=== PATIENT | female | born 1995 | race Caucasian/White ===

== ENCOUNTER 2024-12-10 09:21 | Emergency (ER) | payer MEDICAID ==
[~2024-12-10] VITALS: Ht 163.8 cm; Wt 88.5 kg
[2024-12-10 09:37] VITALS: TEMP 36.7; O2SAT 100
[2024-12-10] MEDS ORDERED: IBUP-2029 MT (11:07)
[2024-12-10] MEDS: KETOROLAC 15MG/ML VIAL IM ONE (11:59)
[2024-12-10 12:20] VITALS: BP 134/67; PULSE 66; RESP 16; O2SAT 100
== END 2024-12-10 12:26 | disposition home or self-care (01) ==
LOC: ER 09:21
DX: M79.645 Pain in left finger(s) (principal); I10 Essential (primary) hypertension; E11.9 Type 2 diabetes mellitus without complications; W23.0XXA Caught, crushed, jammed, or pinched between moving objects, initial encounter; Y93.89 Activity, other specified; Y92.89 Other specified places as the place of occurrence of the external cause; Y99.8 Other external cause status
CPT/HCPCS: 99283; 73130; 29125; 96372; J1885